=== PATIENT | female | born 1985 | race African-American/Black ===

== ENCOUNTER 2018-07-22 13:31 | Emergency (ER) | payer BC, OTHER ==
[2018-07-22 13:38] VITALS: TEMP 103; BMI 26.9
[2018-07-22] MEDS ORDERED: ACETAMINOPHEN 500 MG TABLET (FP) ONE (13:38)
--- NOTE | 2018-07-22 14:04 | PDOC ---
Attending Attestation - Resident Resident Name: MamieKevin - ED Attending Attestation I have performed the following: I have examined & evaluated the patient, The case was reviewed & discussed with the resident, I agree w/resident's findings & plan, Exceptions are as noted - HPI HPI: 07/22/18 14:02 33y F no known pmhx persenst with fever/heaadache/cough x 2-3 days. Pt notes she started having a mild cough productive of whitish sputum on , but cough worsened yesterday morning and was associated with ehadache, nasal congestion, mild back pain and headache. no recent travel, known sick contacts , leg swelling, calf pain, cp, jones, neck pain or stiffness, vision changes. pt endorses some voiting which seem to be preceded by coughign. on exam pt in no distress vitals noted for fever and tachycardia pulm exam noted for very scant expiratory wheezing in L base, no acute respriatry distress, speakingm complete stenences, no accessory muscle use card: tacycardic, no mrg ext: no edema, no calf tenderness, neg homans sign suspect viral syndrome vs pna will give a neb will ck flu, cxr to r/o pna will reassess
[2018-07-22] MEDS ORDERED: guaiFENesin 200 MG/10 ML 10 ML UNIT-DOSE CUPS PO ONE (14:25)
[2018-07-22] MEDS ORDERED: ACETAMINOPHEN 500 MG TABLET (FP) PO ONE (14:27)
[2018-07-22] MEDS ORDERED: guaiFENesin/D-METHORPHAN HB 10 ML UNIT-DOSE CUPS ONE (14:27)
[2018-07-22] MEDS ORDERED: guaiFENesin/D-METHORPHAN HB 10 ML UNIT-DOSE CUPS PO ONE (14:28)
[2018-07-22] MEDS ORDERED: ALBUTEROL SO4 2.5/IPRATROPIUM 0.5 INH SOL 3 ML VIAL.NEB. NEB ONE ×2 (14:29→14:30)
--- NOTE | 2018-07-22 15:05 | PDOC ---
History of Present Illness - General Chief Complaint: Cold Symptoms Stated Complaint: COUGH Time Seen by Provider: 07/22/18 13:45 History Source: Patient Exam Limitations: No Limitations - History of Present Illness Initial Comments: 07/22/18 15:06 33 yo F with no past medical hx presents to the emergency department with a cough and fever. Per the patient, she states that she developed a non- productive cough last (2 days ago) and subsequently developed nausea and had 1x episode of vomiting (NBNB) yesterday. Today, she developed a fever, worsening headache (located frontal without radiation) and with associative fever, SOB, chills, and nasal congestion. Denies current nausea, throat pain/ swelling, ear pain, chest pain, abdominal pain, dysuria, hematuria, diarrhea, and leg pain/swelling. Pmhx: None Shx: none meds: none allergies: NKDA Social: denies tobacco, alcohol, and substance abuse. Past History - Past Medical History Allergies/Adverse Reactions: Allergies Allergy/AdvReac Type Severity Reaction Status Date / Time No Known Drug Allergies Allergy Verified 07/22/18 13:32 seasonal Allergy Uncoded 07/22/18 13:32 Home Medications: Ambulatory Orders NK [No Known Home Medication] 07/22/18 Anemia: No Asthma: No Cancer: No Cardiac Disorders: No CVA: No COPD: No CHF: No Dementia: No Diabetes: No GI Disorders: No Disorders: No HTN: No Hypercholesterolemia: No Liver Disease: No Seizures: No Thyroid Disease: No - Surgical History Abdominal Surgery: No Appendectomy: No Cardiac Surgery: No Cholecystectomy: No Lung Surgery: No Neurologic Surgery: No Orthopedic Surgery: No - Suicide/Smoking/Psychosocial Hx Smoking History: Never smoked Hx Alcohol Use: No Drug/Substance Use Hx: No Substance Use Type: None Hx Substance Use Treatment: No Review of Systems - Review of Systems Able to Perform ROS?: Yes Is the patient limited Khmer proficient: No Constitutional: Yes: Chills, Fever, Weakness. No: Diaphoresis, Night Sweats HEENTM: Yes: Nose Congestion. No: Recent change in vision, Ear Pain, Nose Pain , Throat Pain, Throat Swelling, Mouth Pain Respiratory: Yes: Cough, Shortness of Breath. No: Hemoptysis Cardiac (ROS): No: Chest Pain, Lightheadedness, Palpitations, Syncope, Chest Tightness ABD/GI: No: Constipated, Diarrhea, Nausea, Poor Appetite, Poor Fluid Intake, Rectal Bleeding, Vomiting, Tarry Stools : No: Burning, Dysuria, Hematuria, Urgency Musculoskeletal: No: Back Pain Integumentary: No: Lesions, Lumps, Rash Neurological: Yes: Headache. No: Numbness, Tremors, Weakness, Ataxia, Dizziness Psychiatric: No: Stressors Endocrine: No: Unexplained Weight Gain Hematologic/Lymphatic: No: Anemia *Physical Exam - Vital Signs Last Vital Signs Temp Pulse Resp BP Pulse Ox 103 F H 113 H 20 132/78 99 07/22/18 13:32 07/22/18 13:32 07/22/18 13:32 07/22/18 13:32 07/22/18 13:32 - Physical Exam General Appearance: Yes: Nourished, Appropriately Dressed. No: Apparent Distress, Intoxicated HEENT: positive: EOMI, ERIKA, Normal Voice, Symmetrical, TMs Normal, Pharyngeal Erythema, Nasal Congestion, Hearing Grossly Normal. negative: Pharynx Normal, Pale Conjunctivae, Scleral Icterus (R), Scleral Icterus (L), Muffled/Hoarse voice, Tonsillar Exudate, Sinus Tenderness, TM Erythema, Excessive drooling Neck: positive: Trachea midline. negative: Tender, Lymphadenopathy (R), Lymphadenopathy (L), Tender lateral, Tender midline Respiratory/Chest: positive: Lungs Clear, Normal Breath Sounds. negative: Chest Tender, Respiratory Distress, Accessory Muscle Use, Crackles, Rales, Rhonchi, Stridor, Wheezing Cardiovascular: positive: Regular Rhythm, S1, S2, Tachycardia. negative: Systolic Murmur Gastrointestinal/Abdominal: positive: Normal Bowel Sounds, Flat, Soft. negative : Tender, Distended Lymphatic: negative: Adenopathy Musculoskeletal: positive: Normal Inspection. negative: CVA Tenderness, CVA Tenderness (R), CVA Tenderness (L), Vertebral Tenderness Extremity: positive: Normal Capillary Refill, Normal Inspection, Normal Range of Motion. negative: Tender, Swelling, Calf Tenderness Integumentary: positive: Normal Color, Dry, Warm. negative: Rash, Swelling Neurologic: positive: continuing education dean II-XII NML intact, Fully Oriented, Alert, Normal Mood/ Affect, Normal Response, Motor Strength 5/5. negative: EOM Palsy, Sensory Deficit Moderate Sedation - Procedure Monitoring Vital Signs: Procedure Monitoring Vital Signs Temperature 103 F H 12/08/18 13:32 Pulse Rate 113 H 07/22/18 13:32 Respiratory Rate 20 07/22/18 13:32 Blood Pressure 132/78 07/22/18 13:32 O2 Sat by Pulse Oximetry (%) 99 07/22/18 13:32 ED Treatment Course - ADDITIONAL ORDERS Additional order review: Laboratory Results 07/22/18 14:29 Urine HCG, Qual Negative - RADIOLOGY Radiology Studies Ordered: Category Date Time Status CHEST PA & LAT [RAD] Stat Radiology 07/22/18 15:01 Ordered - Medications Given in the ED: ED Medications Discontinued Medications Generic Name Dose Route Start Last Admin Trade Name Freq PRN Reason Stop Dose Admin Acetaminophen 1,000 mg 07/22/18 14:27 07/22/18 14:37 Tylenol - PO 07/22/18 14:28 1,000 mg ONCE ONE Administration Albuterol/Ipratropium 1 amp 07/22/18 14:29 07/22/18 14:36 Duoneb - NEB 07/22/18 14:30 1 amp ONCE ONE Administration Guaifenesin 10 ml 07/22/18 14:28 07/22/18 14:36 Robitussin Dm - PO 07/22/18 14:29 10 ml ONCE ONE Administration Medical Decision Making - Medical Decision Making 33 yo F with no past medical hx presents to the emergency department with a cough and fever. Initial vitals: Initial Vital Signs Temp Pulse Resp BP Pulse Ox 103 F H 113 H 20 132/78 99 07/22/18 13:32 07/22/18 13:32 07/22/18 13:32 07/22/18 13:32 07/22/18 13:32 Work up ddx: influenza vs URI vs pNA vs sinusitis vs otitis media orders: influenza and urine treatment: duoneb, guaifenesin, tylenol 07/22/18 15:12 Patient was reassessed after 1amp duoneb and stated she felt better. Able to tolerate PO at this time and denies nausea. Urine was negative and CXR is pending. CXR shows no acute pathologies. lab positive for influenza A. patient was notified of the results. she understands the need to stay at home from work to maintain hydration and rest. she felt better overall from the treatments provided for her. i answered all of her questions and advised her to follow up with her primary medical doctor. Dispo: Discharge *DC/Admit/Observation/Transfer Diagnosis at time of Disposition: Influenza A - Discharge Dispostion Disposition: HOME Condition at time of disposition: Stable Decision to Admit order: No - Referrals Referrals: Brian Siddiqui [Other] [facility] [Provider Group] - Patient Instructions Printed Discharge Instructions: DI for Influenza -- Adult Additional Instructions: you were seen in the emergency department for the evaluation of your cough and fever. your labs show that you are positive for influenza A. it is important to stay hydrated and obtain rest. your symptoms will resolve within 7 days. if you have worsening of symptoms or develop new concerning symptoms such as inability to tolerate eating/drinking, diarrhea, and productive coughs please return to the emergency department. Please follow up with your primary medical doctor within 7 days after discharge for follow up care and management. Please use tylenol or ibuprofen for fever and pain relief as directed on the bottle. Thank you. - Post Discharge Activity Forms/Work/School Notes: Back to Work
[2018-07-22 15:46] VITALS: BP 106/73; PULSE 96
== END 2018-07-22 17:16 | disposition home or self-care (01) ==
LOC: FER 13:31
PROC: 3E0F7GC Introduction of Other Therapeutic Substance into Respiratory Tract, Via Natural or Artificial Opening (ICD-10-PCS; principal; 2018-07-22)
DX: J09.X2 Influenza due to identified novel influenza A virus with other respiratory manifestations (principal)
CPT/HCPCS: 71046-TC-FY; 84703; 87804; 94640; 99282-25